=== PATIENT | male | born 1960 | race Caucasian/White ===

== ENCOUNTER 2022-03-25 07:27 | Day surgery (SDC) | payer OTHER ==
[~2022-03-25] VITALS: Ht 172.7 cm; Wt 105.6 kg
[2022-03-25] MEDS ORDERED: METF500 PO (08:12)
[2022-03-25] MEDS ORDERED: ATOR40TA PO (08:12)
[2022-03-25] MEDS ORDERED: NORT10 PO (08:13)
[2022-03-25] MEDS ORDERED: LISI20 PO (08:13)
== END 2022-03-25 09:43 | disposition home or self-care (01) ==
LOC: ORSCSDS 07:27
PROVIDERS: Orthopaedic Surgery
PROC: 01N50ZZ Release Median Nerve, Open Approach (ICD-10-PCS; principal; 2022-03-25 09:00)
DX: G56.03 Carpal tunnel syndrome, bilateral upper limbs (principal); I10 Essential (primary) hypertension; E66.9 Obesity, unspecified; Z68.35 Body mass index [BMI] 35.0-35.9, adult; E11.9 Type 2 diabetes mellitus without complications; Z87.891 Personal history of nicotine dependence; Z79.84 Long term (current) use of oral hypoglycemic drugs; Z79.899 Other long term (current) drug therapy
CPT/HCPCS: 82947; J0690; J2250; J2704; J3010; J7120